=== PATIENT | male | born 1995 | race Caucasian/White ===

== ENCOUNTER 2017-09-15 00:14 | Emergency (ER) | payer MEDICAID ==
[~2017-09-15] VITALS: Ht 175.3 cm; Wt 64.0 kg
[2017-09-15] MEDS ORDERED: MORPHINE SULFATE 10 MG/ML CPJ IV ONE (00:30)
[2017-09-15] MEDS ORDERED: CEFAZOLIN 1000MG PREMIX 50 ML IV ONE (00:30)
[2017-09-15] MEDS ORDERED: SODIUM CHLORIDE 0.9% 1,000 ML IV ONE ×2 (00:30)
[2017-09-15] MEDS ORDERED: ONDANSETRON HCL 4MG/2ML VIAL IV ONE (00:30)
[2017-09-15 00:47] LABS: CHLORIDE 105 mEq/L (98-107)
[2017-09-15 00:49] LABS: INR 1.1; PARTIAL THROMBOPLASTIN TIME 25.8 sec (23.4-31.0); PROTHROMBIN TIME 11.3 sec (9.4-11.6)
[2017-09-15 00:51] LABS: BASOPHILS % 0.5 % (0.0-2.0); EOSINOPHILS % 0.4 % (0.0-5.0); LYMPHOCYTES % 24.5 % (20.0-50.0); MEAN CORPUSCULAR VOLUME 84.6 fL (80.0-94.0); MEAN PLATELET VOLUME 8.3 fl (7.4-10.4); MONOCYTES % 5.1 % (2.0-8.0); NEUTROPHILS % 69.5 % (40.0-76.0); PLATELET 295 x1000/uL (130-400); RED BLOOD CELL COUNT 4.84 mill/uL (4.7-6.1); RED CELL DISTRIBUTION WIDTH 14.5 % (11.6-14.6)
[2017-09-15 00:52] LABS: ETHANOL BLOOD < 10 mg/dL
[2017-09-15 01:30] VITALS: BP 131/79
[2017-09-15] MEDS ORDERED: IOHEXOL-350 100 ML BOTTLE ONE (01:57)
== END 2017-09-15 02:30 | disposition short-term general hospital (02) ==
LOC: ER 00:26
DX: S82.192B Other fracture of upper end of left tibia, initial encounter for open fracture type I or II (principal); T79.7XXA Traumatic subcutaneous emphysema, initial encounter; S75.092 Other specified injury of femoral artery, left leg; R58 Hemorrhage, not elsewhere classified; X93.XXXA Assault by handgun discharge, initial encounter; Y93.89 Activity, other specified; Y92.488 Other paved roadways as the place of occurrence of the external cause
CPT/HCPCS: 36415; 73552; 73590; 73706; 80048; 85025; 85610; 85730; 86850; 86900; 86901; 96365; 96375; 99291; G0482; J0690; J2270; J2405; J7030; Q9967; Z7610